=== PATIENT | female | born 1960 | race Hispanic/Latino ===

== ENCOUNTER 2025-01-07 00:17 | Emergency (ER) | payer OTHER ==
--- OUTSIDE RECORDS SUMMARY | 2025-01-07 00:20 | XMS REPORT | Continuity of Care Document ---
Author Name Unknown Address [address] [place] [address] [place] [address] 1 [address] [place] [address] Care Team Providers Care Canvas Cutter Name Role Phone Provider, Contracted/Affiliated Primary Care Tez vela Unavailable Payers Payer Name Policy Type Policy Number Effective Date Expirati on Date Source Encounters Start Date/Time End Date/Time Encounter Type Admission Type Attending [facility] Care Department Encounter ID Source 2023-07-21 18:00:00 2023-07-21 18:00:00 Outpatient Provider, Contracted/ Affiliated [facility] ESTRADA [id number] [facility]
[2025-01-07] MEDS ORDERED: THIAMINE 200 MG/2 ML INJ ONE (00:42)
[2025-01-07] MEDS ORDERED: NA CHLORIDE 0.9% 1,000 ML ONE (00:42)
[2025-01-07 01:00] LABS: Absolute Eosinophils 0.2 K/uL (0-0.5); Absolute Lymphocytes (CBC) 1.8 K/uL (0.7-4.9); Absolute Monocytes 0.4 K/uL (0.1-1.3); Absolute Neutrophil 2.9 K/uL (1.8-8.0); Basophils % 0.4 % (0-1.3); Eosinophils % 3.5 % (0-4.4); Hematocrit 37.3 % (36.0-45.0); Hemoglobin 12.5 g/dL (12.0-15.0); Lymphocytes % 33.9 % (15.3-44.8); MCH 31.9 pg (27.0-35.0); MCHC 33.6 g/dL (32.0-36.0); MCV 94.7 fL (80-100); MPV 7.2 fL (7.6-11.3); Monocytes % 6.8 % (3.3-12.3); Neutrophils % 55.4 % (41.7-73.7); Nucleated Red Blood Cells % 0.1 % (0-0); Platelets 381 thou/uL (152-406); RBC Red Blood Cell Count 3.93 M/uL (3.86-4.86); Red Cell Distribution Width 12.8 % (12.1-15.2)
[2025-01-07 01:24] LABS: ALT/SGPT 25 U/L (13-56); AST/SGOT 16 U/L (15-37); Albumin 3.2 g/dL (3.4-5.0); Albumin/Globulin Ratio 0.9 (1.1-1.8); Alkaline Phosphatase 136 U/L (45-117); Anion Gap 9.7 mEq/L (5.0-15.0); BUN Blood Urea Nitrogen 11 mg/dL (7-18); Bicarbonate 24 mEq/L (21-32); Bilirubin Total 0.2 mg/dL (0.2-1.0); Globulin 3.6 g/dL (2.3-3.5); Glomerular Filtration Rate 98 ml/min (=/>90); Glucose Level 99 mg/dL (74-106); Magnesium 2.3 mg/dL (1.6-2.4); NT PRO-BNP 14 pg/mL (<125); Potassium 3.7 mEq/L (3.5-5.1); Protein, Total 6.8 g/dL (6.4-8.2); Sodium Level 141 mEq/L (136-145); Troponin High Sensitivity 4.1 pg/mL (<58.9)
[2025-01-07 01:26] LABS: Bilirubin Direct < 0.2 mg/dL (0-0.2)
--- NOTE | 2025-01-07 02:28 | EDPHYS ---
Physician Documentation [facility] Name: Gabrielle Patterson Age: 64 yrs Sex: Female : 1960 Arrival Date: 01/07/2025 Time: 00:17 Bed 3 Private MD: ED Physician Christian Gonzalez HPI: 01/07 00:33 This 64 yrs old Female presents to ER via EMS with complaints of syncope, sp4 intoxication, chest pains. 06:07 64-year-old female presents with EMS for acute alcohol intoxication also syncopal sp4 episode at home. Patient reported several weeks of persistent chest pains. . Historical: - Allergies: 00:21 No Known Allergies; bm8 - Home Meds: 00:21 terbinafine HCl oral [Active]; escitalopram oxalate oral [Active]; Aspirin Oral bm8 [Active]; Lisinopril Oral [Active]; Trazodone Oral [Active]; - PMHx: 00:21 None; bm8 - PSHx: 00:21 None; bm8 - Immunization history:: Adult Immunizations up to date. - Infectious Disease History:: Denies. - Social history:: Smoking status: Patient denies any tobacco usage or history of. Patient uses alcohol. - Family history:: not pertinent. ROS: 06:07 Constitutional: Negative for fever, chills, and weight loss, positive chest pain, sp4 positive for syncope, positive alcohol intoxication, positive emotional stress 06:07 All other systems are negative, Exam: 06:07 Constitutional: This is a well developed, well nourished patient who is awake, alert, sp4 and in no acute distress. Head/Face: Normocephalic, atraumatic. Eyes: Pupils equal round and reactive to light, extra-ocular motions intact. Lids and lashes normal. Conjunctiva and sclera are not injected. Cornea within normal limits. Periorbital areas with no swelling, redness, or edema. ENT: Nares patent. No nasal discharge, no septal abnormalities noted. Tympanic membranes are normal and external auditory canals are clear. Oropharynx with no redness, swelling, or masses, exudates, or evidence of obstruction, uvula midline. Mucous membranes moist. Neck: Trachea midline, no thyromegaly or masses palpated, and no cervical lymphadenopathy. Supple, full range of motion without nuchal rigidity, or vertebral point tenderness. Chest/axilla: Normal chest wall appearance and motion. Nontender with no deformity. No lesions are appreciated. Cardiovascular: Regular rate and rhythm with a normal S1 and S2. No gallops, murmurs, or rubs. Normal PMI, no JVD. No pulse deficits. Respiratory: Lungs have equal breath sounds bilaterally, clear to auscultation and percussion. No rales, rhonchi or wheezes noted. No increased work of breathing, no retractions or nasal flaring. Abdomen/GI: Soft, with normal bowel sounds. No distension or tympany. No guarding or rebound. No evidence of tenderness throughout. Back: No spinal tenderness. No costovertebral tenderness. Skin: Warm, dry with normal turgor. Normal color with no rashes, no lesions, and no evidence of cellulitis. MS/ Extremity: Pulses equal, no cyanosis. Neurovascular intact. Full, normal range of motion. Neuro: Awake and alert, GCS 15, oriented to person, place, time, and situation. Cranial nerves II-XII grossly intact. Motor strength 5/5 in all extremities. Sensory grossly intact. Psych: Awake, alert, with orientation to person, place and time. Behavior, mood, and affect are within normal limits 06:07 ECG was reviewed by the Attending Physician. EKG 0023 normal sinus rhythm rate 93 Vital Signs: 00:19 BP 133 / 93; Pulse 101; Resp 19; Temp 97.6; Pulse Ox 98% ; Weight 58.97 kg; Height 5 bm8 ft. 0 in. ; Pain 0/10; 00:56 BP 120 / 82; Pulse 89; Resp 18; Pulse Ox 97% on R/A; Pain 0/10; rg5 02:21 BP 116 / 83; Pulse 90; Resp 18; Temp 97.6; Pulse Ox 97% ; Pain 0/10; bm8 00:19 Body Mass Index 25.39 (58.97 kg, 152.4 cm) bm8 00:19 Pain Scale: Adult bm8 00:56 Pain Scale: Adult rg5 02:21 Pain Scale: Adult bm8 Day Coma Score: 02:21 Eye Response: spontaneous(4). Motor Response: obeys commands(6). Verbal Response: bm8 oriented(5). Total: 15. MDM: 00:41 Medical Screening Exam initiated sp4 02:24 ED course: EXAM: XR Chest, 1 View CLINICAL HISTORY: CHEST PAIN TECHNIQUE: Frontal view sp4 of the chest. COMPARISON: No relevant prior studies available. FINDINGS: Lungs: Unremarkable. No consolidation. Pleural space: Unremarkable. No pneumothorax. Heart: Unremarkable. No cardiomegaly. Mediastinum: Unremarkable. Normal mediastinal contour. Bones/joints: Unremarkable. No acute fracture. IMPRESSION: No acute disease.. 06:33 Differential diagnosis: acute pericarditis, anxiety, chest wall pain, esophagitis, sp4 gastritis. HEART Score: History: Moderately Suspicious (1), ECG: Normal (0), Age: > or = 65 years (2), Risk Factors: No Risk Factors Known (0), Troponin: < or = 1 x Normal Limit (0), Total Score = 2. Data reviewed: vital signs, nurses notes, EMS record, old medical records, lab test result(s), EKG, radiologic studies, plain films. 01/07 00:31 Order name: Basic Metabolic Panel; Complete Time: 02:01/07 00:31 Order name: CBC with Diff; Complete Time: 02:23 01/07 00:31 Order name: LFT's; Complete Time: 02:01/07 00:31 Order name: Magnesium; Complete Time: 02:01/07 00:31 Order name: NT PRO-BNP; Complete Time: 02:23 01/07 00:31 Order name: Troponin HS; Complete Time: 02:23 01/07 00:32 Order name: Alcohol Level; Complete Time: 02:23 01/07 00:32 Order name: TSH; Complete Time: 02:23 01/07 00:32 Order name: T4 Free; Complete Time: 02:23 01/07 00:31 Order name: XRAY Chest (1 view) 01/07 00:31 Order name: EKG; Complete Time: 00:32 01/07 00:31 Order name: Cardiac monitoring; Complete Time: 00:52 01/07 00:31 Order name: EKG - Nurse/Tech; Complete Time: 00:52 01/07 00:31 Order name: IV Saline Lock; Complete Time: 00:52 sp4 01/07 00:31 Order name: Labs collected and sent; Complete Time: sp4 01/07 00:31 Order name: O2 Per Protocol; Complete Time: sp4 01/07 00:31 Order name: O2 Sat Monitoring; Complete Time: sp4 EC:23 Rate is 93 beats/min. Rhythm is regular, Normal Sinus Rhythm. QRS [place] is Normal. TN sp4 interval is normal. QRS interval is normal. QT interval is normal. No Q waves. T waves are Normal. No ST changes noted. Clinical impression: Normal ECG. Interpreted by me. Reviewed by me. Administered Medications: 00:45 Drug: Thiamine IV 100 mg IV at bolus once Route: IV; Rate: bolus; Site: right rg5 antecubital; : Follow up: Response: No adverse reaction; IV Status: Completed infusion bm8 00:45 Drug: NS 0.9% IV 1000 ml IV at 1 bolus Per protocol; to be given as a bolus over 60 rg5 minutes Route: IV; Rate: 1 bolus; Site: right antecubital; :22 Follow up: Response: No adverse reaction; IV Status: Completed infusion bm8 Disposition Summary: 01/07/25 02:28 Discharge Ordered Notes: Location: Home sp4 Problem: new sp4 Symptoms: have improved sp4 Condition: Stable sp4 Diagnosis - Anxiety disorder, unspecified sp4 - Noncardiac chest pain, Acute anxiety attack, Acute syncopal episode sp4 Followup: sp4 - With: Private Physician - When: 7 - 10 days - Reason: Recheck today's complaints Discharge Instructions: - Discharge Summary Sheet sp4 - Managing Anxiety, Adult sp4 Forms: - Patient Portal Instructions sp4 Signatures: Dispatcher [employer] Christian Siu MD MD sp4 Anshu Cornell RN RN bm8 John Paul Bean RN RN rg5
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
[2025-01-07 02:47] VITALS: TEMP 97.6
[2025-01-07 02:48] VITALS: O2SAT 97
[2025-01-07 02:50] VITALS: BP 116/83
--- NOTE | 2025-01-07 05:45 | RAD REPORT ---
EXAM: XR Chest, 1 View CLINICAL HISTORY: CHEST PAIN TECHNIQUE: Frontal view of the chest. COMPARISON: No relevant prior studies available. FINDINGS: Lungs: Unremarkable. No consolidation. Pleural space: Unremarkable. No pneumothorax. Heart: Unremarkable. No cardiomegaly. Mediastinum: Unremarkable. Normal mediastinal contour. Bones/joints: Unremarkable. No acute fracture. IMPRESSION: No acute disease. Electronically signed by: Idalia Espinoza MD 01/07/2025 01:34 AM CDT RP Due to temporary technical issues with the PACS/Belly Ballot reporting system, reports are being sarai d by the in-house radiologist without review as a courtesy to ensure prompt reporting the interpreting radiologist is fully responsible for the content of the report. Transcribed Date/Time: 01/07/2025 5:44 AM
== END 2025-01-07 02:36 | disposition home or self-care (01) ==
LOC: ER 00:17
DX: F41.0 Panic disorder [episodic paroxysmal anxiety] (principal); F41.9 Anxiety disorder, unspecified; R07.89 Other chest pain
CPT/HCPCS: 96365; 85025; 80048; 36415; 83735; 80076; 84443; 84484; 84439; 83880; 71045; 99285; 96366; 82077; J3411; J7030; 93005